=== PATIENT | male | born 1985 | race Caucasian/White ===

== ENCOUNTER 2021-05-16 15:01 | Emergency (ER) | payer OTHER, SELFPAY ==
[2021-05-16] MEDS ORDERED: Ibuprofen 200 MG TAB ONE (16:53)
== END 2021-05-16 17:10 | disposition home or self-care (01) ==
LOC: NAV ERS 15:01
DX: S43.101A Unspecified dislocation of right acromioclavicular joint, initial encounter (principal); S39.012A Strain of muscle, fascia and tendon of lower back, initial encounter; S50.01XA Contusion of right elbow, initial encounter; F17.210 Nicotine dependence, cigarettes, uncomplicated; V43.52XA Car driver injured in collision with other type car in traffic accident, initial encounter
CPT/HCPCS: 72100